=== PATIENT | female | born 1950 | race Two or more races ===

== ENCOUNTER → 2020-05-01 | Outpatient (CLI) | payer MEDICARE, MEDICAID ==
--- NOTE | 2020-05-01 15:29 | CARD ---
MR#: [id number] Date of Study: 05/01/2020 Ordering Physician: GENESIS SAMUELS, Referring Physician: GENESIS SAMUELS, Tech: Jagruti Degroot Emilianorodrigue [facility] APPROVED REPORT EXAM: Two-dimensional and M-mode echocardiogram with Doppler and color Doppler. Other Information Quality : AverageHR: 65bpm INDICATION Cardiomegaly RISK FACTORS Hypertension 2D DIMENSIONS RVDd2.9 (2.9-3.5cm)Left Atrium(2D)2.7 (1.6-4.0cm) IVSd1.0 (0.7-1.1cm)Aortic Root(2D)4.1 (2.0-3.7cm) LVDd4.6 (3.9-5.9cm)LVOT Diameter1.9 (1.8-2.4cm) PWd1.0 (0.7-1.1cm)LVDs3.0 (2.5-4.0cm) FS (%) 34.7 %SV63.4 ml LVEF(%)63.9 (>50%) Aortic Valve AoV Peak Clarence.159.8cm/sAoV VTI30.0cm AO Peak GR.10.2mmHgLVOT Peak Clarence.92.7cm/s AO Mean GR.6mmHgAVA (VMAX)1.72cm2 AI P 1/2 [id number] Mitral Valve MV E Ccreyieb66.9cm/sMV DECEL [id number] MV A Gyzexzan10.5cm/sE/A Ratio0.6 Pulmonary Valve PV Peak Elxkjtko046.0cm/s Tricuspid Valve TR P. Ebwdanny005ow/sRAP [id number] TR Peak Gr.11jrWfRPEA51ikVf Pulmonary Vein S1 Atxamybf16.8cm/sD2 Jgcgvtff39.9cm/s PVa [id number] LEFT VENTRICLE The left ventricle is normal size. There is normal left ventricular wall thickness. The left ventricu lar systolic function is normal. The Ejection Fraction is 55%. There is normal LV segmental wall coleen on. Transmitral Doppler flow pattern is Grade I-abnormal relaxation pattern. RIGHT VENTRICLE The right ventricle is normal size. There is normal right ventricular wall thickness. The right ventr icular systolic function is normal. ATRIA The left atrium size is normal. The right atrium size is normal. The interatrial septum is intact wit h no evidence for an atrial septal defect or patent foramen ovale as noted on 2-D or Doppler imaging. AORTIC VALVE The aortic valve is normal in structure and function. Doppler and Color Flow revealed trace aortic re gurgitation. There is no significant aortic valvular stenosis. Calculated aortic valve area is 1.9 cm 2 with maximum pressure gradient of 10 mmHg and mean pressure gradient of 6 mmHg. MITRAL VALVE The mitral valve is normal in structure and function. There is no evidence of mitral valve prolapse. There is no mitral valve stenosis. Doppler and Color Flow revealed no mitral valve regurgitation note d. TRICUSPID VALVE The tricuspid valve is normal in structure and function. Doppler and Color Flow revealed trace to mil d tricuspid regurgitation with an estiamted PAP of 34 mmHg. There is no tricuspid valve stenosis. PULMONIC VALVE The pulmonic valve is not well visualized. Doppler and Color Flow revealed no pulmonic valvular regur gitation. GREAT VESSELS The aortic root is mildly enlarged measuring 4.1 cm. The ascending aorta is Mildly dilated measuring 3.9 cm. The IVC is normal in size and collapses >50% with inspiration. PERICARDIAL EFFUSION There is no evidence of significant pericardial effusion. Critical Notification Critical Value: No <Conclusion> The left ventricular systolic function is normal. The Ejection Fraction is 55%. There is normal LV segmental wall motion. Transmitral Doppler flow pattern is Grade I-abnormal relaxation pattern. Trace to mild tricuspid regurgitation with an estiamted PAP of 34 mmHg. There is no evidence of significant pericardial effusion. Signed by : Bandar Mcqueen, Electronically Approved : 05/01/2020 15:28:56
== END ==
LOC: ECHO 07:40
PROVIDERS: ATTEND Family Medicine
DX: I07.1 Rheumatic tricuspid insufficiency (principal)
CPT/HCPCS: 93306